=== PATIENT | female | born 1970 | race Caucasian/White ===

== ENCOUNTER → 2018-07-22 | Outpatient (CLI) | payer BC ==
[2018-07-22 12:44] LABS: HEMATOCRIT 39.4 % (36.0-47.0); HEMOGLOBIN 12.7 g/dl (12.0-15.5); MEAN CORPUSCULAR HEMOGLOBIN 28.7 pg (27.0-33.0); MEAN CORPUSCULAR HGB CONC 32.2 g/dl (32.0-36.5); MEAN CORPUSCULAR VOLUME 88.9 fl (80.0-96.0); PLATELET COUNT, AUTOMATED 405 10^3/uL (150-450); RED BLOOD COUNT 4.43 10^6/uL (4.00-5.40); WHITE BLOOD COUNT 10.2 10^3/uL (4.0-10.0)
[2018-07-22 13:07] LABS: ALBUMIN 3.8 GM/DL (3.2-5.2); ALT/SGPT 19 U/L (12-78); BILIRUBIN,TOTAL 0.5 MG/DL (0.2-1.0); BLOOD UREA NITROGEN 11 MG/DL (7-18); C REACTIVE PROTEIN QUANTITATIV 0.62 MG/DL (0.00-0.30); CALCIUM LEVEL 8.7 MG/DL (8.5-10.1); CARBON DIOXIDE LEVEL 28 MEQ/L (21-32); CHLORIDE LEVEL 105 MEQ/L (98-107); CHOLESTEROL LEVEL 165 MG/DL (<200); CHOLESTEROL RISK RATIO 2.462 (<5); CREATININE FOR GFR 0.57 MG/DL (0.55-1.30); GLOMERULAR FILTRATION RATE > 60.0 (>58); GLUCOSE, FASTING 82 MG/DL (70-100); HDL CHOLESTEROL 67 MG/DL (>40); LDL CHOLESTEROL 89 MG/DL (<100); NON-HDL-C 98 MG/DL; POTASSIUM SERUM 4.3 MEQ/L (3.5-5.1); RHEUMATOID FACTOR QUANT < 10.0 IU/ML (<15.0); SODIUM LEVEL 138 MEQ/L (136-145); TOTAL PROTEIN 6.7 GM/DL (6.4-8.2); TRIGLYCERIDES LEVEL 45 MG/DL (<150)
[2018-07-26 00:06] LABS: CYCLIC CITRULLINATED PEPTIDE 6 units (0-19); Lyme Disease IgG/IgM Antibodie <0.91 ISR (0.00-0.90); Lyme Disease IgM Ab Quantitati <0.80 index (0.00-0.79)
== END ==
LOC: M WUC 08:19
PROVIDERS: ATTEND Nurse Practitioner Adult Health
DX: Z00.00 Encounter for general adult medical examination without abnormal findings (principal); M25.50 Pain in unspecified joint; Z13.220 Encounter for screening for lipoid disorders; R19.4 Change in bowel habit

== ENCOUNTER → 2019-12-18 | Outpatient (CLI) | payer BC ==
--- NOTE | 2019-12-18 12:22 | REP ---
REASON: Pain. There is a tiny minimal flake-like ossific density seen just lateral to the lateral talar base on one view only. There appears to be some soft tissue swelling; however, I do not know the patient's generalized body habitus. The mortise is intact. The examination is otherwise unremarkable. IMPRESSION: Possible minimal talar base avulsion fracture. Correlate clinically for point tenderness about this region. Electronically Signed by Randy Sanchez DO 12/18/2019 01:10 P
--- NOTE | 2019-12-18 12:23 | REP ---
FOOT: REASON: Pain. FINDINGS: The joint spaces are symmetric and relatively well maintained. There is no evidence of acute fracture or destructive osseous lesion. IMPRESSION: Negative. See the ankle report. Electronically Signed by Randy Sanchez DO 12/18/2019 01:11 P
== END ==
LOC: M WUC 11:24
PROVIDERS: ATTEND Physician Assistant
DX: M25.572 Pain in left ankle and joints of left foot (principal)

== ENCOUNTER → 2021-01-01 | Outpatient (CLI) | payer OTHER ==
[~2021-01-01] MED LIST: PERC5TAB12 PO
[2021-01-01 07:24] LABS: ALBUMIN 3.7 GM/DL (3.2-5.2); ALT/SGPT 17 U/L (12-78); BILIRUBIN,TOTAL 0.3 MG/DL (0.2-1.0); BLOOD UREA NITROGEN 14 MG/DL (7-18); CALCIUM LEVEL 9.1 MG/DL (8.5-10.1); CARBON DIOXIDE LEVEL 30 MEQ/L (21-32); CHLORIDE LEVEL 106 MEQ/L (98-107); CHOLESTEROL LEVEL 201 MG/DL (<200); CHOLESTEROL RISK RATIO 2.955 (<5); CREATININE FOR GFR 0.68 MG/DL (0.55-1.30); GLOMERULAR FILTRATION RATE > 60.0 (>58); GLUCOSE, FASTING 99 MG/DL (70-100); HDL CHOLESTEROL 68 MG/DL (>40); LDL CHOLESTEROL 120 MG/DL (<100); NON-HDL-C 133 MG/DL; POTASSIUM SERUM 4.4 MEQ/L (3.5-5.1); SODIUM LEVEL 140 MEQ/L (136-145); TRIGLYCERIDES LEVEL 65 MG/DL (<150)
[2021-01-01 09:05] LABS: TOTAL 25(OH) VITAMIN D 43.4 NG/ML (30.0-100.0)
== END ==
LOC: M LAB 06:26
PROVIDERS: ATTEND Nurse Practitioner Adult Health
DX: Z00.00 Encounter for general adult medical examination without abnormal findings (principal); Z13.220 Encounter for screening for lipoid disorders; Z13.21 Encounter for screening for nutritional disorder; Z13.29 Encounter for screening for other suspected endocrine disorder

== ENCOUNTER → 2021-01-08 | Outpatient (CLI) | payer OTHER ==
--- NOTE | 2021-01-08 15:16 | REP ---
INDICATION: ABD DISCOMFORT, HARD/PALPABLE AREA NEAR UMBILICUS. COMPARISON: None. TECHNIQUE: 2D real-time ultrasound FINDINGS: Ultrasound of the area pointed out by the patient as the palpable abnormality was performed near the umbilicus. IMPRESSION: No abnormality was detected. <Electronically signed by Yakov Mendez > 01/08/21 [id number]
== END ==
LOC: M RAD 14:34
PROVIDERS: ATTEND Nurse Practitioner Adult Health
DX: R10.9 Unspecified abdominal pain (principal)

== ENCOUNTER → 2021-02-20 | Outpatient (CLI) | payer OTHER ==
--- NOTE | 2021-02-20 16:25 | REPMRS ---
Patient History The patient states she had a clinical breast exam in December 2020. No known family history of cancer. Patient states no breast complaints today. Patient has signed MRS History Sheet. Digital Woman Screen Mammo: February 20, 2021 - Exam #: [id number] Bilateral CC and MLO view(s) were taken. Technologist: Marita Medeiros, Technologist FINDINGS: There are scattered fibroglandular densities. Screening. Digital screening (2D) mammography was performed bilaterally in the CC and MLO projections. Additionally, breast tomosynthesis (3D mammography) was performed bilaterally in the CC and MLO projections. Todays exam was compared to the prior exam/exams. By history, the patient has no complaints of a palpable breast abnormality or other significant breast complaints. The Volpara volumetric breast density category is B, there are scattered areas of fibroglandular densities. There are benign intramammary lymph nodes, bilaterally. The breasts are unchanged in size and shape. There are no fercho-soft tissue densities or spiculated masses. There is no internal architectural distortion. There are no suspicious fercho-calcific clusters. Skin thickening or nipple retraction is not present. IMPRESSION: BI-RADS Category 2- Benign Findings. There is no evidence of malignant alteration of the breasts. Followup examination recommended in one year. This mammogram was read with the assistance of [employer],an FDA approved computer aided detection system for mammography. The lifetime Tyrer-Cuzick score is 9.0% Negative x-ray reports should not delay surgical consultation if a dominant or clinically suspicious mass is present. Not all breast cancers can be identified by mammography. Therefore, we recommend that you continue to perform regular breast self-examination and physical examination and then promptly contact your physician of any concerns or changes. Adenosis and dense breasts may obscure an underlying neoplasm. No significant changes when compared with prior studies. Assessment: BI-RADS/ACR category 2 mammogram. Benign Findings. Recommendation Routine screening mammogram of both breasts in 1 year. Electronically Signed By: Shreyas Salmon MD 02/20/21 [id number]
== END ==
LOC: M WHC 14:50
PROVIDERS: ATTEND Advanced Practice Midwife
DX: Z12.31 Encounter for screening mammogram for malignant neoplasm of breast (principal)

== ENCOUNTER → 2021-02-22 | Outpatient (CLI) | payer OTHER | LOC: M LABSMTC 09:58 | PROVIDERS: ATTEND Anesthesiology | DX: Z01.812 Encounter for preprocedural laboratory examination (principal); Z20.822 Contact with and (suspected) exposure to COVID-19 ==

== ENCOUNTER 2021-02-27 12:01 | Day surgery (SDC) | payer OTHER ==
[~2021-02-27] VITALS: Ht 157.5 cm; Wt 70.8 kg
[~2021-02-27 12:01] MED LIST changes: +ACETAMINOPHEN *IV* 1,000 MG IV ONE; +ACETAMINOPHEN 1000MG 100ML IV BTL (OFIRMEV) (J0131 PER 10MG) As Ordered ONE; +BUPIVACAINE/EPIN 0.25% 30 ML VIAL As Ordered ONE; +FLUORESCEIN 10% (100MG/ML) 5 ML VIAL As Ordered ONE; +HYDROmorphone HCL 2 MG/ML 1ML VIAL As Ordered ONE; +KETOROLAC 60MG 2ML VIAL As Ordered ONE; +LIDOCAINE 2% 100MG/5ML SDV (FOR ANES.) As Ordered ONE; +LR 1,000 ML IV ONE; +MIDAZOLAM INJ 2MG/2ML VIAL (J2250 PER 1MG) As Ordered ONE; +ONDANSETRON 4MG/2ML VIAL As Ordered ONE; -PERC5TAB12 PO; +ROCURONIUM BROMIDE 50 MG/5 ML VIAL As Ordered ONE; +SUGAMMADEX SODIUM 500 MG/5 ML VIAL (BRIDION) As Ordered ONE; +ceFAZolin SOD 2 GM in IV 1 EA IV ONE; +dexameTHASONE 4 MG/ML 1ML VIAL (J1100 PER 1MG) As Ordered ONE; +fentaNYL 100 MCG/2 ML INJECTION (J3010) As Ordered ONE; +propofoL 200 MG/20 ML VIAL As Ordered ONE
[2021-02-27 12:52] LABS: HEMATOCRIT 40.4 % (36.0-47.0); HEMOGLOBIN 12.6 g/dl (12.0-15.5); MEAN CORPUSCULAR HGB CONC 31.2 g/dl (32.0-36.5); MEAN CORPUSCULAR VOLUME 89.8 fl (80.0-96.0); PLATELET COUNT, AUTOMATED 405 10^3/uL (150-450); WHITE BLOOD COUNT 6.3 10^3/uL (4.0-10.0)
[2021-02-27 13:18] LABS: BLOOD UREA NITROGEN 7 MG/DL (7-18); CALCIUM LEVEL 9.6 MG/DL (8.5-10.1); CARBON DIOXIDE LEVEL 29 MEQ/L (21-32); CHLORIDE LEVEL 106 MEQ/L (98-107); CREATININE FOR GFR 0.71 MG/DL (0.55-1.30); GLOMERULAR FILTRATION RATE > 60.0 (>58); GLUCOSE, FASTING 86 MG/DL (70-100); POTASSIUM SERUM 4.1 MEQ/L (3.5-5.1); SODIUM LEVEL 142 MEQ/L (136-145)
[2021-02-27] MEDS ORDERED: PERC5TAB12 PO (14:08)
[2021-02-27] MEDS ORDERED: ROCURONIUM BROMIDE 50 MG/5 ML VIAL As Ordered ONE (15:18)
[2021-02-27] MEDS ORDERED: LR 1,000 ML IV SCH ×2 (16:10→16:55)
[2021-02-27] MEDS ORDERED: fentaNYL 100 MCG/2 ML INJECTION (J3010) IV PRN (16:10)
[2021-02-27] MEDS ORDERED: ONDANSETRON 4MG/2ML VIAL IV PRN (16:10)
[2021-02-27] MEDS ORDERED: oxyCODONE 5MG TAB PO PRN (16:10)
[2021-02-27] MEDS ORDERED: PERCOCET 5MG/325MG TAB PO PRN (16:55)
[2021-02-27] MEDS: HYDROMORPHONE HCL 0.5 MG/ 0.5 ML SYRINGE (J1170 PER 1) IV PRN ×2 (16:57→17:05)
--- NOTE | 2021-02-27 17:12 | RO ---
OPERATIVE NOTE DATE OF OPERATION: 02/27/2021 Marsha is a 50-year-old female with a history of severe pelvic pain and multiple fibroid uterus. After counseling, decision was made to proceed with robotic-assisted total hysterectomy, bilateral salpingo-oophorectomy and cystoscopy. PREOPERATIVE DIAGNOSIS: 1. Chronic pelvic pain. 2. Multiple fibroid uterus. POSTOPERATIVE DIAGNOSIS: 1. Chronic pelvic pain. 2. Multiple fibroid uterus. 3. Multiple omental and bowel adhesion to the lower uterine segment. PROCEDURE: Robotic-assisted total hysterectomy. Bilateral salpingo-oophorectomy. Cystoscopy. Multiple myomectomy. Extensive lysis of adhesions. SURGEON: Mihir Chatman DO DERMATOLOGY NURSE PRACTITIONER: ANESTHESIA: DESCRIPTION OF PROCEDURE: After obtaining informed consent, the patient was taken to the operating room where general anesthetic was found to be adequate. She was then draped and prepped in the usual sterile fashion in the dorsal lithotomy position. At this point, a Pascual catheter was placed in the bladder for drainage. We then placed a weighted speculum in the posterior fornix of the vagina. Using a William retractor, the anterior lip of the cervix was then grasped with a single-tooth tenaculum. The uterus was sound to approximately 10 cm in size. A Humi uterine manipulator was placed. We then turned our attention to the abdomen where using a Veress needle, the abdomen was insufflated with CO2 gas to approximately 3.5 liters. I then placed an 8 mm supraumbilical incision for an 8 mm trocar. The trocar was inserted under direct visualization. We then placed two left lateral ports, one for robotic arm 1 and the other for an assist port. On the right side, an 8 mm lateral port was placed for robotic arm 2. At this point, the patient was placed in steep Trendelenburg. The robot was brought to the patient's right side and the camera port was docked in the usual fashion. After docking the camera port, proper targeting test was done. After passing the test, both robotic arm 1 and 2 was then docked in the usual fashion. At this point, a vessel sealer was placed in arm 1 and a bipolar grasper in arm 2. I then unscrubbed and went to the surgeon console to begin the surgery. The pelvis as well as abdomen was inspected. The omentum was found to be adherent to the lower uterine segment as well as embedded to the anterior abdominal wall from a previous section scar. Using the vessel sealer as well as the bipolar grasper for a series of blunt and sharp dissection, the omentum was taken off the anterior abdominal wall as well as the lower uterine segment. At this point, bowel adhesions that were noted were also lysed using the vessel sealer. The infundibulopelvic ligament was identified on the right side. This was cauterized and cut. This was taken all the way down to the round ligament, the uterine artery. The opposite side was done in a similar fashion. After securing both uterine arteries and creating a bladder flap, the bladder was pushed out of the operative field. We then removed the vessel sealer and placed and Endoshear. Anterior and posterior colpotomy was performed. Given the multiple nature of the fibroids, there were three large fibroids that could not be removed with the uterus through the vagina. At this point, the Endoshear was used as well as the bipolar grasper. We performed multiple myomectomies, allowing the uterus to be able to be delivered through the vagina. After delivering the uterus and the fibroid that was left, I then placed the two fibroids that I had removed through the vagina and removed them vaginally. The Endoshear was removed. A needle cpr ambulance driver was inserted and the 2-0 V-Loc suture was also placed. The vaginal cuff was then closed in a running fashion using the 2-0 V-Loc sutures. The peritoneum over the vaginal cuff was also closed in a similar fashion. The pelvis was copiously irrigated with normal saline and suctioned out. Good hemostasis noted. One mL of fluorescein was given by the anesthesiologist to assist in the cystoscopy. I then rescrubbed and went to the patient's side. Retrograde filled the bladder with 230 mL of normal saline. Pascual catheter was removed. The cystoscope was inserted. Bilateral ureteral jets were noted with yellow dye coming out both ureters. There was no evidence of any bladder injury. At this point, the cystoscope was removed. The bladder was drained. We turned our attention to the abdomen where the robotic ports were closed using 3-0 Vicryl in subcuticular fashion. 1/4% Marcaine was placed. The patient tolerated the procedure well. She was then transferred to recovery room in stable condition. [facility]
[2021-02-27] MEDS ORDERED: IBUPROFEN 800 MG TAB PO SCH (18:00)
[2021-02-27 18:25] VITALS: BP 119/64
== END 2021-02-27 18:47 | disposition home or self-care (01) ==
LOC: M SDC 12:01
PROVIDERS: ATTEND Obstetrics & Gynecology
DX: D25.9 Leiomyoma of uterus, unspecified (principal); R10.2 Pelvic and perineal pain; N73.6 Female pelvic peritoneal adhesions (postinfective)
CPT/HCPCS: 36415; 58545; 58571; 80048; 81025; 85027; 86850; 86900; 86901; 88307; J0131; J0690; J1100; J1170; J1885; J2250; J2405; J3010; S2900

== ENCOUNTER → 2023-07-14 | Outpatient (CLI) | payer OTHER, SELFPAY ==
[~2023-07-14] MED LIST changes: -ACETAMINOPHEN *IV* 1,000 MG IV ONE; -ACETAMINOPHEN 1000MG 100ML IV BTL (OFIRMEV) (J0131 PER 10MG) As Ordered ONE; -BUPIVACAINE/EPIN 0.25% 30 ML VIAL As Ordered ONE; -FLUORESCEIN 10% (100MG/ML) 5 ML VIAL As Ordered ONE; -HYDROmorphone HCL 2 MG/ML 1ML VIAL As Ordered ONE; -KETOROLAC 60MG 2ML VIAL As Ordered ONE; -LIDOCAINE 2% 100MG/5ML SDV (FOR ANES.) As Ordered ONE; -LR 1,000 ML IV ONE; -MIDAZOLAM INJ 2MG/2ML VIAL (J2250 PER 1MG) As Ordered ONE; -ONDANSETRON 4MG/2ML VIAL As Ordered ONE; +PERC5TAB12 PO; -ROCURONIUM BROMIDE 50 MG/5 ML VIAL As Ordered ONE; -SUGAMMADEX SODIUM 500 MG/5 ML VIAL (BRIDION) As Ordered ONE; -ceFAZolin SOD 2 GM in IV 1 EA IV ONE; -dexameTHASONE 4 MG/ML 1ML VIAL (J1100 PER 1MG) As Ordered ONE; -fentaNYL 100 MCG/2 ML INJECTION (J3010) As Ordered ONE; -propofoL 200 MG/20 ML VIAL As Ordered ONE
== END ==
LOC: M WHC 14:41
PROVIDERS: ATTEND Nurse Practitioner Adult Health
DX: Z12.31 Encounter for screening mammogram for malignant neoplasm of breast (principal)

== ENCOUNTER → 2023-09-10 | Outpatient (CLI) | payer OTHER ==
[2023-09-10 11:10] LABS: HEMATOCRIT 39.2 % (36.0-47.0); HEMOGLOBIN 12.3 g/dl (12.0-15.5); MEAN CORPUSCULAR HEMOGLOBIN 28.1 pg (27.0-33.0); MEAN CORPUSCULAR HGB CONC 31.4 g/dl (32.0-36.5); MEAN CORPUSCULAR VOLUME 89.7 fl (80.0-96.0); PLATELET COUNT, AUTOMATED 404 10^3/uL (150-450); RED BLOOD COUNT 4.37 10^6/uL (4.00-5.40); WHITE BLOOD COUNT 7.1 10^3/uL (4.0-10.0)
[2023-09-10 11:39] LABS: C REACTIVE PROTEIN QUANTITATIV < 0.40 MG/DL (<1.0)
[2023-09-10 11:41] LABS: ALBUMIN 3.5 G/DL (3.2-5.2); ALKALINE PHOSPHATASE 64 U/L (46-116); ALT/SGPT 15 U/L (7.0-40); AST/SGOT 12 U/L (<34); BILIRUBIN,TOTAL 0.3 MG/DL (0.3-1.2); BLOOD UREA NITROGEN 14 MG/DL (9-23); CALCIUM LEVEL 8.7 MG/DL (8.5-10.1); CARBON DIOXIDE LEVEL 30 MMOL/L (20-31); CHLORIDE LEVEL 107 MMOL/L (98-107); CHOLESTEROL LEVEL 197 MG/DL (<200); CREATININE FOR GFR 0.58 MG/DL (0.55-1.30); GLOMERULAR FILTRATION RATE > 60.0 (>51); GLUCOSE, FASTING 91 MG/DL (60-100); HDL CHOLESTEROL 75.6 MG/DL (>40); IRON (FE) 36 UG/DL (50-170); LDL CHOLESTEROL 108.8 MG/DL (<100); NON-HDL-C 121.4 MG/DL; POTASSIUM SERUM 4.2 MMOL/L (3.5-5.1); RHEUMATOID FACTOR QUANT 7.2 IU/ML (<14); SODIUM LEVEL 141 MMOL/L (136-145); TOTAL PROTEIN 6.3 G/DL (5.7-8.2); TRIGLYCERIDES LEVEL 63 MG/DL (<150)
[2023-09-10 11:42] LABS: FERRITIN 5.3 NG/ML (7.3-270.7); THYROID STIMULATING HORMONE 2.103 uIU/ML (0.55-4.78); TOTAL 25(OH) VITAMIN D 42.8 NG/ML (20.0-100.0)
== END ==
LOC: M PLALAB 07:27
PROVIDERS: ATTEND Nurse Practitioner Adult Health
DX: Z00.00 Encounter for general adult medical examination without abnormal findings (principal); Z13.220 Encounter for screening for lipoid disorders; Z13.21 Encounter for screening for nutritional disorder; Z13.29 Encounter for screening for other suspected endocrine disorder; M25.50 Pain in unspecified joint; R23.3 Spontaneous ecchymoses

== ENCOUNTER → 2023-10-09 | Outpatient (CLI) | payer OTHER | LOC: M RAD 07:43 | PROVIDERS: ATTEND Nurse Practitioner Family | DX: R19.7 Diarrhea, unspecified (principal); R10.11 Right upper quadrant pain ==

== ENCOUNTER 2023-10-27 08:04 | Day surgery (SDC) | payer OTHER ==
[~2023-10-27] VITALS: Ht 157.5 cm; Wt 76.2 kg
[~2023-10-27 08:04] MED LIST changes: +CVS1CAP2 PO; +ESTR1TAB PO; +NS 1,000 ML IV ONE; +THERTAB52 PO
[2023-10-27] MEDS ORDERED: propofoL 200 MG/20 ML VIAL As Ordered ONE (09:26)
[2023-10-27] MEDS ORDERED: propofoL 500 MG/50 ML VIAL As Ordered ONE (09:26)
[2023-10-27 09:52] VITALS: TEMP 97.7
[2023-10-27 10:10] VITALS: BP 114/55; O2SAT 99
== END 2023-10-27 10:15 | disposition home or self-care (01) ==
LOC: M OPP 08:04
PROVIDERS: ATTEND Internal Medicine Gastroenterology
DX: Z12.11 Encounter for screening for malignant neoplasm of colon (principal); K63.5 Polyp of colon; K64.4 Residual hemorrhoidal skin tags; K64.8 Other hemorrhoids; K57.30 Diverticulosis of large intestine without perforation or abscess without bleeding; F17.200 Nicotine dependence, unspecified, uncomplicated; Z79.818 Long term (current) use of other agents affecting estrogen receptors and estrogen levels

== ENCOUNTER → 2023-11-20 | Outpatient (CLI) | payer OTHER ==
[~2023-11-20] MED LIST changes: -NS 1,000 ML IV ONE
[2023-11-20 11:16] LABS: HEMATOCRIT 42.1 % (36.0-47.0); HEMOGLOBIN 13.4 g/dl (12.0-15.5); MEAN CORPUSCULAR HEMOGLOBIN 28.8 pg (27.0-33.0); MEAN CORPUSCULAR HGB CONC 31.8 g/dl (32.0-36.5); MEAN CORPUSCULAR VOLUME 90.5 fl (80.0-96.0); PLATELET COUNT, AUTOMATED 388 10^3/uL (150-450); RED BLOOD COUNT 4.65 10^6/uL (4.00-5.40); WHITE BLOOD COUNT 8.2 10^3/uL (4.0-10.0)
[2023-11-20 11:49] LABS: PERCENT SATURATION 33.2 % (13.2-45.0)
[2023-11-20 11:52] LABS: FERRITIN 13.3 NG/ML (7.3-270.7)
== END ==
LOC: M PLALAB 08:17
PROVIDERS: ATTEND Nurse Practitioner Adult Health
DX: R23.3 Spontaneous ecchymoses (principal)

== ENCOUNTER → 2024-01-07 | Outpatient (CLI) | payer OTHER | LOC: M RAD 07:11 | PROVIDERS: ATTEND Nurse Practitioner Family | DX: R10.11 Right upper quadrant pain (principal); K82.8 Other specified diseases of gallbladder | CPT/HCPCS: 78227; A9537 ==

== ENCOUNTER → 2024-01-07 | Outpatient (REF) | payer OTHER | LOC: M LAB REF 09:05 | PROVIDERS: ATTEND Nurse Practitioner Family | DX: K86.81 Exocrine pancreatic insufficiency (principal) ==

== ENCOUNTER 2025-04-25 14:55 | Emergency (ER) | payer BC, OTHER ==
[~2025-04-25] VITALS: Ht 157.5 cm; Wt 75.3 kg
[2025-04-25 15:31] LABS: BASO # 0.1 10^3/uL (0.0-0.2); BASO % 0.3 % (0.0-1.0); EOS # 0.1 10^3/uL (0.0-0.5); EOS % 0.7 % (0.0-3.0); LYMPH # 2.3 10^3/uL (1.5-5.0); LYMPH % 12.8 % (24.0-44.0); MONO # 1.0 10^3/uL (0.0-0.8); MONO % 5.7 % (2.0-8.0); NEUTROPHILS # 14.4 10^3/uL (1.5-8.5); NEUTROPHILS % 80.1 % (36.0-66.0); PLATELET COUNT, AUTOMATED 466 10^3/uL (150-450)
[2025-04-25 15:42] LABS: KETONE, URINE AUTO RFX TRACE mg/dL (NEGATIVE); LEUKOCYTE ESTERASE UR AUTO RFX NEGATIVE (NEGATIVE); NITRITE, URINE AUTO RFX NEGATIVE (NEGATIVE); RBC, URINE AUTO RFX 0 /HPF (0-3); SQUAM EPITHELIAL CELL UR AURFX 0 /HPF (0-6); WBC, URINE AUTO RFX 0 /HPF (0-3)
[2025-04-25 15:54] LABS: ALT/SGPT 14 U/L (7.0-40); AST/SGOT 22 U/L (<34)
[2025-04-25] MEDS: NS (Normal Saline) 0.9% 1,000 ML IV ONE (17:34)
[2025-04-25] MEDS: PIPERACILLIN/TAZOBACTAM SOD 3.375 GM in DEXTROSE 5% (D5W) ADV/MINI-BAG 50 ML IV ONE (17:35)
[2025-04-25] MEDS: KETOROLAC 30 MG/ML 1 ML VIAL IV ONE (17:35)
[2025-04-25 17:36] LABS: CALCIUM LEVEL 9.6 MG/DL (8.5-10.1); CARBON DIOXIDE LEVEL 27 MMOL/L (20-31); CHLORIDE LEVEL 99 MMOL/L (98-107); CREATININE FOR GFR 0.60 MG/DL (0.55-1.30); GLOMERULAR FILTRATION RATE > 90.0 (>51); POTASSIUM SERUM 4.3 MMOL/L (3.5-5.1); SODIUM LEVEL 137 MMOL/L (136-145)
[2025-04-25] MEDS ORDERED: ISOVUE-370 76% 100 ML VIAL As Ordered ONE (17:55)
[2025-04-25] MEDS ORDERED: AMOX875T2 PO (18:47)
[2025-04-25] MEDS ORDERED: HYDR-3713 PO (18:47)
[2025-04-25] MEDS ORDERED: ONDA-282 PO (18:47)
[2025-04-25 19:28] VITALS: BP 112/54; TEMP 98.3; O2SAT 98
== END 2025-04-25 19:36 | disposition home or self-care (01) ==
LOC: M ED 14:55
DX: K57.32 Diverticulitis of large intestine without perforation or abscess without bleeding (principal); Z79.1 Long term (current) use of non-steroidal anti-inflammatories (NSAID); Z79.2 Long term (current) use of antibiotics; Z79.899 Other long term (current) drug therapy
CPT/HCPCS: 74177; 80048; 80076; 81001; 83690; 85025; 96365; 96366; 96375; 99284; J1885; J2543; Q9967